=== PATIENT | female | born 1975 | race Caucasian/White ===

== ENCOUNTER 2021-08-08 06:30 | Inpatient (IN) | payer MEDICARE, OTHER, MEDICAID ==
[2021-08-08] MEDS ORDERED: Celecoxib 200 MG Cap PO ONE (07:00)
[2021-08-08] MEDS ORDERED: Dextrose 5%-Lactated Ringers 1,000 ML IV SCH ×3 (07:00→21:00)
[2021-08-08] MEDS ORDERED: Acetaminophen 500 MG Tab PO ONE (07:00)
[2021-08-08] MEDS ORDERED: Scopolamine 1.5 MG Transdermal Patch TOP SCH (07:00)
[2021-08-08] MEDS ORDERED: Neostigmine Methylsulfate 1 MG/ML 5 ML Syringe ONE (07:11)
[2021-08-08] MEDS ORDERED: Ondansetron 4 MG/2 ML SDV ONE (07:11)
[2021-08-08] MEDS ORDERED: Rocuronium 50 MG/5 ML Vial ONE ×2 (07:11→09:14)
[2021-08-08] MEDS ORDERED: Propofol 200 MG/20 ML SDV ONE (07:11)
[2021-08-08] MEDS ORDERED: fentaNYL 250 MCG/5 ML SDV ONE ×2 (07:11→08:43)
[2021-08-08] MEDS ORDERED: Glycopyrrolate 0.2 MG/ML 5 ML MDV ONE (07:11)
[2021-08-08] MEDS ORDERED: Dexamethasone 4 MG/ML SDV ONE (07:11)
[2021-08-08] MEDS ORDERED: Succinylcholine 200 MG/10 ML MDV ONE (07:11)
[2021-08-08] MEDS ORDERED: Levofloxacin/Dextrose 5%-Water 500 MG in Premix Bag 1 BAG IV ONE (08:00)
[2021-08-08] MEDS ORDERED: Levofloxacin 500 MG/20 ML SDV ONE (08:19)
[2021-08-08] MEDS ORDERED: Ketamine 15 MG in Sodium Chloride 0.9% 19.85 ML IV SCH (08:30)
[2021-08-08] MEDS ORDERED: Ketamine 500 MG/5 ML MDV IV SCH (08:30)
[2021-08-08] MEDS ORDERED: Lactated Ringers 1,000 ML ONE (08:57)
[2021-08-08] MEDS ORDERED: hydrOXYzine HCL 100 MG/2 ML SDV IM ONE (11:11)
[2021-08-08] MEDS ORDERED: Cyclobenzaprine 10 MG Tab PO PRN (12:36)
[2021-08-08] MEDS ORDERED: Labetalol 20 MG/4 ML Syringe IVPUSH PRN (13:00)
[2021-08-08] MEDS ORDERED: Metoclopramide 10 MG/2 ML SDV IVPUSH PRN (13:00)
[2021-08-08] MEDS ORDERED: Acetaminophen 500 MG Tab PO PRN (13:00)
[2021-08-08] MEDS ORDERED: HYDROmorphone 1 MG/ML Syringe IV PRN (13:00)
[2021-08-08] MEDS ORDERED: HYDROmorphone 0.5 MG/0.5 ML Syringe IVPUSH PRN (13:00)
[2021-08-08] MEDS ORDERED: hydrOXYzine HCL 100 MG/2 ML SDV IM PRN (13:00)
[2021-08-08] MEDS ORDERED: diphenhydrAMINE 50 MG/ML SDV IVPUSH PRN (13:00)
[2021-08-08] MEDS ORDERED: traMADol 50 MG Tab PO PRN (13:00)
[2021-08-08] MEDS ORDERED: Ondansetron 4 MG/2 ML SDV IVPUSH PRN (13:00)
[2021-08-08] MEDS: Acetaminophen 500 MG Tab PO SCH ×2 (14:17→22:15)
--- NOTE | 2021-08-08 14:27 | PCM.EKG ---
#1 Interpretation EKG Date: 08/08/21 Time: 07:15 Rhythm: NSR Rate (Beats/Min): 75 [place]: Normal P-Wave: Present QRS: Other (Low voltage precordial leads, poor R wave progression precordial leads, consider previous anteroseptal infarct) ST-T: Normal QT: Normal Comparison: NA - No Prior EKG
[2021-08-08] MEDS: oxyCODONE 5 MG Tab PO PRN ×2 (14:52→20:49)
[2021-08-08] MEDS ORDERED: Pantoprazole 40 MG Vial IVPUSH SCH (15:00)
[2021-08-08] MEDS: MVI, Adult with Vitamin K 10 ML, Thiamine 200 MG, Zinc/Copper/Manganese/Selenium 1 ML i... IV SCH ×4 (15:06)
[2021-08-08] MEDS: Heparin Sodium 5,000 Units/ML Vial SUBCUT SCH (17:35)
[2021-08-08] MEDS: busPIRone 10 MG Tab PO SCH (20:07)
[2021-08-09] MEDS ORDERED: Iopamidol 612 MG/ML 50 ML SDV PO STA (01:44)
[2021-08-09] MEDS: oxyCODONE 5 MG Tab PO PRN ×3 (03:27→18:23)
[2021-08-09] MEDS: Acetaminophen 500 MG Tab PO SCH ×3 (06:11→21:07)
[2021-08-09] MEDS: Heparin Sodium 5,000 Units/ML Vial SUBCUT SCH ×2 (06:11→17:12)
[2021-08-09] MEDS ORDERED: Dextrose 5%-Lactated Ringers 1,000 ML IV SCH (07:15)
[2021-08-09] MEDS: traZODone 50 MG Tab PO SCH ×2 (07:37→21:07)
[2021-08-09] MEDS ORDERED: Levofloxacin/Dextrose 5%-Water 500 MG in Premix Bag 1 BAG IV SCH (08:00)
[2021-08-09] MEDS: ARIPiprazole 10 MG Tab PO SCH (08:30)
[2021-08-09] MEDS: busPIRone 10 MG Tab PO SCH ×2 (08:31→21:06)
[2021-08-09] MEDS: amLODIPine 5 MG Tab PO SCH (08:37)
[2021-08-09] MEDS: Celecoxib 200 MG Cap PO SCH ×2 (08:38→21:07)
[2021-08-09] MEDS: Escitalopram 10 MG Tab PO SCH (08:39)
--- NOTE | 2021-08-09 08:54 | PN ---
DATE OF SERVICE: 08/09/2021 SUBJECTIVE: Tea had a gastric bypass yesterday. She is postop day 1. Oral intake was 450, urine output was 3075. MARY drain put out 100 mL of a light red drainage. Vital signs have been stable. She has been up ambulating, and upper GI this morning was normal. REVIEW OF SYSTEMS: Remainder of review of systems negative for any pertinent positives and negatives. OBJECTIVE: GENERAL: Tea is a pleasant 46-year-old female. She is alert and orientated, has been up walking now. VITAL SIGNS: TPR is 97.7, 111, and 18. Blood pressure 114/69, O2 is 94% by pulse ox. HEENT: Negative. NECK: Supple. HEART: Regular rate and rhythm. LUNGS: Clear. ABDOMEN: Dressings dry and intact. Abdominal binder is on. EXTREMITIES: Without peripheral edema. ASSESSMENT: Diagnostic laparoscopy with: 1. Laparoscopic Peggy-en-Y gastric bypass surgery. 2. Needle liver biopsy. 3. Repair of paraesophageal hernia. 4. Excision of mediastinal lipoma. 5. Partial gastrectomy. POSTOPERATIVE DIAGNOSES: 1. Morbid obesity. 2. Hepatomegaly. 3. Diaphragmatic hernia. 4. Mediastinal lipoma. 5. Portion of the stomach ischemic after formation of pouch. Date of surgery 08/08/2021. Surgeon: Darrell Moore MD. PLAN: 1. Step-2 gastric bypass diet. 2. Give 1 dose of Levaquin today and then discontinue. 3. Decrease IV to 60 mL per hour. 4. Start Atarax 50 mg q.4 hours p.r.n. pain at 2000; 3 med cups per hour, may take trazodone, restart tonight; and Zofran ODT 4 mg q.4 hours p.r.n. nausea may start tonight. Continue use of incentive spirometer. Ambulate 6 times a day daily, and we will evaluate p.r.n. or in a.m. Sherry Bryan PA-C /[id number]
[2021-08-09] MEDS ORDERED: SCOPOLAMINE PATCH CHECK TOP SCH (09:00)
--- NOTE | 2021-08-09 09:48 | CR ---
[facility] HISTORY: Postbariatric surgery FINDINGS: Patient swallowed water-soluble contrast. Upright views of the abdomen show no evidence of extravasation or obstruction. There is a left upper quadrant drain. Contrast is not seen beyond 25 cm from the anastomosis. There is some air-filled dilated bowel in advance to this. This persists out to the 30 minute delayed film. IMPRESSION: Status post bariatric surgery No extravasation. Contrast is not seen beyond 25 cm but there is air-filled small bowel distal to this. This most likely represent some postoperative ileus. Clinical correlation necessary. Short-term follow-up flat plate may be helpful
[2021-08-09] MEDS ORDERED: Pantoprazole 40 MG Delayed-Release Granules 1 Packet PO SCH (15:00)
[2021-08-09] MEDS: MVI, Adult with Vitamin K 10 ML, Thiamine 200 MG, Zinc/Copper/Manganese/Selenium 1 ML i... IV SCH ×4 (15:45)
[2021-08-09] MEDS ORDERED: hydrOXYzine HCl 25 MG Tab PO PRN (20:00)
[2021-08-09] MEDS ORDERED: Ondansetron 4 MG Tab.DIS PO PRN (20:00)
[2021-08-10] MEDS: Heparin Sodium 5,000 Units/ML Vial SUBCUT SCH (06:27)
[2021-08-10] MEDS: Acetaminophen 500 MG Tab PO SCH (06:27)
[2021-08-10] MEDS: Escitalopram 10 MG Tab PO SCH (08:00)
[2021-08-10] MEDS: ARIPiprazole 10 MG Tab PO SCH (08:00)
[2021-08-10] MEDS: Celecoxib 200 MG Cap PO SCH (08:00)
[2021-08-10] MEDS: busPIRone 10 MG Tab PO SCH (08:01)
[2021-08-10] MEDS: amLODIPine 5 MG Tab PO SCH (08:01)
--- NOTE | 2021-08-10 08:48 | DISCH ---
ADMISSION DIAGNOSES: 1. Morbid obesity. 2. Body mass index . 3. Essential hypertension. 4. Esophageal reflux. 5. Post-traumatic stress disorder. 6. Hypothyroidism. 7. Dysthymic disorder. 8. Psychophysiological insomnia. 9. Recurrent major depression disorder. 10.Anxiety. DISCHARGE DIAGNOSES: Diagnostic laparoscopy with: 1. Laparoscopic Peggy-en-Y gastric bypass surgery. 2. Needle liver biopsy. 3. Repair of paraesophageal diaphragmatic hernia. 4. Excision of mediastinal lipoma. 5. Partial gastrectomy. POSTOPERATIVE DIAGNOSES: 1. Morbid obesity. 2. Hepatomegaly. 3. Diaphragmatic hernia. 4. Mediastinal lipoma. 5. Portion of stomach ischemic after formation of pouch. 6. Date of surgery: 08/08/2021. Surgeon: Darrell Moore MD. HISTORY: Tea Colon is a pleasant 46-year-old female with longstanding history of morbid obesity and increasing comorbidities. After preoperative evaluation and discussion of possible risks and possible complications, she wished to proceed with surgical procedure. HOSPITAL COURSE: Tea had her surgery on 08/08/2021. She had no operative complications. On postoperative day #1, her upper GI was normal. She was started on a step 2 gastric bypass diet with no cereal. Pain was controlled per energy protocol. On postoperative day #2, she was able to be discharged to home. Vital signs stable. Oral intake adequate. Pain was well managed and activity was good. She did receive a vitamin B12 1000 mcg IM injection. PHYSICAL EXAMINATION: GENERAL: Tea is a pleasant 46-year-old female. VITAL SIGNS: Height is 5 feet 2.5 inches, weight is 319 pounds, BMI is . TPR 96.5, 74, 14, blood pressure 120/63. HEENT: Negative. NECK: Supple. HEART: Regular rate and rhythm. LUNGS: Clear. ABDOMEN: Dressings dry and intact. Sutures in place. Trocar sites look good. MARY drain removed with a 4 x 4 placed over. Abdominal binder is on. EXTREMITIES: Without peripheral edema. DISPOSITION: Discharged to home. CONDITION: Stable and improving. FOLLOWUP: Appointment with Sherry Bryan PA-C, on 08/16/2021 at 10 a.m. HOME MEDICATIONS: 1. Hydroxyzine/Atarax 50 mg q.4 hours p.r.n. pain. 2. Zofran ODT 4 mg p.o. q.4 hours p.r.n. nausea. 3. Celebrex 200 mg p.o. b.i.d. for 28 days. 4. She is to resume home medication of: a. Trazodone 300 mg p.o. at bedtime. b. Buspar 30 mg p.o. b.i.d. c. Norvasc 5 mg p.o. daily. d. Levothyroxine 60.5 mcg p.o. daily. e. Lexapro 10 mg p.o. daily. f. Lotronex 0.5 mg p.o. b.i.d. g. Abilify 5 mg p.o. daily. h. Tylenol Extra Strength 1000 mg q.8 hours p.o. pain. DIET: Step 2 gastric bypass diet for 2 weeks with no cereal until 08/23/2021. Drink 8 to 10 glasses of water a day. ACTIVITY: No lifting greater than 10 pounds for 2 weeks. OTHER ACTIVITY: Walk 6 times daily inside your home. Driving: Do not drive for 1 week. Shower/bathing: May shower. Keep operative site clean and dry. Wear abdominal binder for 2 weeks and then as tolerated. Notify provider if any fever, increased pain, swelling, redness, drainage, nausea, or vomiting. OTHER INSTRUCTIONS: Walk 3 minutes for every hour you are riding in the car. Use incentive spirometer 10 times every hour while awake for 1 week. /[id number]
[2021-08-10] MEDS ORDERED: Cyanocobalamin (Vitamin B12) 1,000 MCG/ML SDV IM ONE (09:00)
--- NOTE | 2021-08-17 10:09 | OR ---
DATE OF PROCEDURE: 08/08/2021 SURGEON: Darrell Moore MD PREOPERATIVE DIAGNOSIS: Morbid obesity. POSTOPERATIVE DIAGNOSES: 1. Morbid obesity. 2. Marked hepatomegaly. 3. Paraesophageal diaphragmatic hernia. 4. Mediastinal lipoma. 5. Portion of stomach ischemic after formation of gastric pouch. OPERATIVE PROCEDURE: Diagnostic laparoscopy with: 1. Laparoscopic Peggy-en-Y gastric bypass with long limb gastroenterostomy (41184). 2. Baldev-Cut needle liver biopsy (26114). 3. Repair of paraesophageal diaphragmatic hernia (02088). 4. Excision of mediastinal lipoma (92872). 5. Partial gastrectomy (18644). ANESTHESIA: General. FLUME TENDER: Sherry Bryan PA-C INDICATIONS FOR PROCEDURE: This is a 46-year-old female presenting with longstanding morbid obesity and increasingly significant comorbidities. After preoperative evaluation and discussion, she wished to proceed with a gastric bypass procedure. Potential risks of the procedure including bleeding, infection, injury to underlying viscera, leaks from GI tract closures, problem with bowel obstruction over time as well as possibility of cardiopulmonary, septic, or hemorrhagic complications leading to were discussed, and the patient wishes to proceed. DETAILS OF PROCEDURE: The patient was taken to the operating room, where after general endotracheal anesthesia was induced, she was placed in a lithotomy position and the abdomen prepped and draped. 15 cm inferior and 5 cm left of the xiphoid process, a transverse incision was made and peritoneal cavity entered under direct vision with an Optiview trocar, inflated to 15 mmHg pressure with CO2. Laparoscope was then reinserted. No underlying trocar insertion site injuries were seen. Following this, five additional trocars were placed across the upper and mid abdomen. Bilateral transversus abdominis plane blocks were placed. The liver was noted to be markedly enlarged and fatty infiltrated. Baldev-Cut needle biopsy obtained from left lobe of the liver. Minimal bleeding from the biopsy sites was controlled with electrocautery. The omentum was then divided in the midline up to the level of the transverse colon. This allowed identification of the small bowel to the ligament of Treitz. Small bowel was then traced out 150 cm distal to that point where it was divided with a TROY stapler. Small bowel was then traced out additional 175 cm where the [id number] enteroenterostomy was accomplished with internal firing of the Endo-TROY 60 mm stapler. The common opening was closed transversely with the same stapler, angles anastomosed, mesenteric defect approximated with some 0 Ethibond stitch along with fibrin sealant. The divided end of the Peggy limb was then from the mesentery for a few centimeters, which allowed an antecolic position of the Peggy limb up to the level of gastroesophageal junction without tension. The liver was then retracted anteriorly. The patient was noted to have a moderate-sized paraesophageal diaphragmatic hernia. This was reduced. The peritoneum overlying it was incised and reflected downward. During the course of the dissection, a mediastinal lipoma was encountered, which was removed in order to facilitate more adequate crural repair, which was then accomplished with 0 Ethibond sutures with PTFE pledgets placed anteriorly. The gastrointestinal balloon catheter was then inflated 15 mL and pulled up snugly against the EG junction. Gastric wall over the apex of the balloon was then marked with electrocautery and balloon catheter deflated and pulled up in the esophagus. The lesser omental tissue was then divided adjacent to the gastric cardia allowing dissection behind the stomach at that level. Pouch formation was then initiated with transverse firing of the TROY stapler at the level of the cauterized minoo at the gastric cardia and completed with additional TROY firings up to and through the angle of His. Upon completion of the pouch, a portion of the stomach in the bypassed portion of the stomach was noted to be dusky and this was excised and sent as a separate specimen as partial gastrectomy. The anvil of a 25 mm EEA stapler was then attached to a [place] sump-type tube. The latter was then brought down through the mouth, brought out through an opening in the gastric pouch, allowing the anvil likewise to be pulled down to within the gastric pouch. The divided end of the Peggy limb was then opened and the main body of the EEA stapler passed several centimeters into the lumen of small bowel, brought up the anvil and united with it, thus creating the gastrojejunostomy. Upon removal of stapler, double donuts of mucosa were noted within and small bowel was closed off with a vascular staple line. Gastrojejunostomy was then reinforced with 3-0 Vicryl seromuscular stitch along with fibrin sealant. Leak test was accomplished with injection of 120 mL of air in the gastric pouch while submerged with a cefoxitin-containing saline solution. No leaks were identified. A single [place] drain was taken out through the left lateral trocar site and positioned adjacent to gastrojejunostomy and from there up into the splenic fossa. Trocars were removed and peritoneal cavity deflated. Incisions were closed with some 4-0 Vicryl skin stitch, which was also used to affix the drain. The patient was taken to the recovery room in satisfactory condition. There were no evident complications. Physician assistant sales director, Sherry Bryan, played an essential role in assisting in this case helping to position the patient, retract structures as needed, as well as suturing and cutting sutures when indicated. Her presence improved patient safety and decreased the operative time. Darrell Moore MD /[id number]
== END 2021-08-10 08:49 | disposition home or self-care (01) | DRG 620 ==
LOC: JP.SDS 06:30 → JP.MS 06:30 → EDSTATUS 07:15 → JP.ICU 12:10
PROVIDERS: ADMIT Surgery; ATTEND Surgery
PROC: 0D164ZA Bypass Stomach to Jejunum, Percutaneous Endoscopic Approach (ICD-10-PCS; principal; 2021-08-08)
PROC: 0FB24ZX Excision of Left Lobe Liver, Percutaneous Endoscopic Approach, Diagnostic (ICD-10-PCS; 2021-08-08)
PROC: 0BQT4ZZ Repair Diaphragm, Percutaneous Endoscopic Approach (ICD-10-PCS; 2021-08-08)
PROC: 0DB64ZZ Excision of Stomach, Percutaneous Endoscopic Approach (ICD-10-PCS; 2021-08-08)
PROC: 0JB63ZZ Excision of Chest Subcutaneous Tissue and Fascia, Percutaneous Approach (ICD-10-PCS; 2021-08-08)
DX: E66.01 Morbid (severe) obesity due to excess calories (principal); F33.9 Major depressive disorder, recurrent, unspecified; R16.0 Hepatomegaly, not elsewhere classified; K44.9 Diaphragmatic hernia without obstruction or gangrene; D17.1 Benign lipomatous neoplasm of skin and subcutaneous tissue of trunk; F41.9 Anxiety disorder, unspecified; I10 Essential (primary) hypertension; F43.10 Post-traumatic stress disorder, unspecified; E03.9 Hypothyroidism, unspecified; F34.1 Dysthymic disorder; E55.9 Vitamin D deficiency, unspecified; E53.8 Deficiency of other specified B group vitamins; Z68.43 Body mass index [BMI] 50.0-59.9, adult; Z87.01 Personal history of pneumonia (recurrent); Z88.0 Allergy status to penicillin; Z91.030 Bee allergy status; Z88.8 Allergy status to other drugs, medicaments and biological substances; K31.89 Other diseases of stomach and duodenum
CPT/HCPCS: 36415; 74240; 74240-26; 82947; 86850; 86900; 86901; 93005; 94762; A9270-GY; C9113; J0171; J0330; J1100; J1644; J1956; J2405; J2704; J2710; J2795; J3010; J3410; J3411; J3420; J3490; J7120; J7121; Q9967

== ENCOUNTER 2021-09-12 06:33 | Day surgery (SDC) | payer MEDICARE, OTHER, MEDICAID ==
[2021-09-12] MEDS ORDERED: Cyanocobalamin (Vitamin B12) 1,000 MCG/ML SDV IM ONE (07:30)
[2021-09-12] MEDS ORDERED: Lactated Ringers 1,000 ML IV ONE (07:30)
[2021-09-12] MEDS ORDERED: Glycopyrrolate 0.2 MG/ML 2 ML SDV IVPUSH ONE (07:30)
[2021-09-12 07:32] LABS: CORONAVIRUS COVID-19 NAA NEGATIVE (NEGATIVE)
[2021-09-12] MEDS ORDERED: Midazolam 1 MG/ML 2 ML SDV ONE (07:46)
[2021-09-12] MEDS ORDERED: Propofol 200 MG/20 ML SDV ONE (07:46)
[2021-09-12] MEDS ORDERED: fentaNYL 100 MCG/2 ML SDV ONE (07:46)
[2021-09-12] MEDS ORDERED: MVI, Adult with Vitamin K 10 ML, Thiamine 200 MG, Zinc/Copper/Manganese/Selenium 1 ML i... IV ONE ×4 (08:35)
== END 2021-09-12 11:15 | disposition home or self-care (01) ==
LOC: JP.SDS 06:33
PROVIDERS: ATTEND Surgery
DX: K91.89 Other postprocedural complications and disorders of digestive system (principal); R13.10 Dysphagia, unspecified; I10 Essential (primary) hypertension; E03.9 Hypothyroidism, unspecified; E66.9 Obesity, unspecified; K21.9 Gastro-esophageal reflux disease without esophagitis; Z01.812 Encounter for preprocedural laboratory examination; Z20.822 Contact with and (suspected) exposure to COVID-19; Z68.43 Body mass index [BMI] 50.0-59.9, adult
CPT/HCPCS: 0241U; C1726; J2250; J2704; J3010; J3411; J3420; J3490; J7120

== ENCOUNTER 2023-02-19 06:40 | Day surgery (SDC) | payer MEDICARE, MEDICAID ==
[2023-02-19] MEDS ORDERED: Propofol 200 MG/20 ML SDV ONE (07:08)
[2023-02-19] MEDS ORDERED: Midazolam 1 MG/ML 2 ML SDV ONE (07:30)
[2023-02-19] MEDS ORDERED: Lactated Ringers 1,000 ML IV SCH (07:30)
[2023-02-19] MEDS ORDERED: fentaNYL 100 MCG/2 ML SDV ONE (07:30)
[2023-02-19] MEDS ORDERED: Cyanocobalamin (Vitamin B12) 1,000 MCG/ML SDV IM ONE (08:00)
[2023-02-19] MEDS ORDERED: MVI, Adult with Vitamin K 10 ML, Thiamine 200 MG, Zinc/Copper/Manganese/Selenium 1 ML i... IV ONE ×4 (08:30)
[2023-02-19] MEDS ORDERED: Glycopyrrolate 0.2 MG/ML 2 ML SDV IVPUSH ONE (08:30)
[2023-02-19] MEDS ORDERED: Pantoprazole 40 MG Vial IVPUSH ONE (09:38)
== END 2023-02-19 10:55 | disposition home or self-care (01) ==
LOC: JP.SDS 06:40
PROVIDERS: ATTEND Surgery
DX: R13.10 Dysphagia, unspecified (principal); I10 Essential (primary) hypertension; K21.9 Gastro-esophageal reflux disease without esophagitis; K58.9 Irritable bowel syndrome, unspecified; F43.10 Post-traumatic stress disorder, unspecified; F41.9 Anxiety disorder, unspecified; E03.9 Hypothyroidism, unspecified; E66.9 Obesity, unspecified; Z98.84 Bariatric surgery status; Z79.899 Other long term (current) drug therapy; Z88.0 Allergy status to penicillin; Z88.8 Allergy status to other drugs, medicaments and biological substances; Z91.030 Bee allergy status; Z68.35 Body mass index [BMI] 35.0-35.9, adult
CPT/HCPCS: 43239; 87081; C9113; J2250; J2704; J3010; J3411; J3420; J3490; J7120